=== PATIENT | female | born 1940 | race Caucasian/White ===

== ENCOUNTER 2023-01-01 23:17 | Inpatient (IN) | payer MEDICARE, OTHER ==
[~2023-01-01] VITALS: Ht 157.5 cm; Wt 90.7 kg
[2023-01-02] MEDS ORDERED: ACETAMINOPHEN ES 500 MG TABLET PO ONE (01:00)
[2023-01-02] MEDS ORDERED: TRAMADOL HCL 50 MG TABLET PO ONE (01:00)
[2023-01-02 01:06] LABS: ABG BASE EXCESS 2.7 mmol/L; ABG PCO2 48.6 mmHg (35.0-45.0); ABG PH 7.384 (7.350-7.450); ABG PO2 83.2 mmHg (75.0-100.0); COHb 0.3 % (0.5-1.5); MetHb 0.8 % (0.0-1.5); O2Hb 94.7 % (94.0-97.0); SITE, ABG Right Radial; VENT MODE, BG NASAL CANNULA
[2023-01-02 01:08] LABS: EOSINOPHILS % (AUTO) 4.9 % (0.0-6.0); HEMATOCRIT 32 % (33-45); HEMOGLOBIN 10.1 g/dL (11.5-14.8); LYMPHOCYTES # (AUTO) 1.2 K/uL (0.8-4.8); LYMPHOCYTES % (AUTO) 26.6 % (20.0-44.0); MEAN CORPUSCULAR HGB CONC 32 g/dl (31.0-36.0); MEAN CORPUSCULAR VOLUME 90 fL (82-100); MONOCYTES # (AUTO) 0.4 K/uL (0.1-1.30); MONOCYTES % (AUTO) 8.3 % (2.0-12.0); NEUTROPHILS # (AUTO) 2.8 K/uL (1.8-8.9); NEUTROPHILS % (AUTO) 59.2 % (43.0-81.0); PLATELET COUNT (AUTO) 363 K/uL (150-450); WHITE BLOOD COUNT (AUTO) 4.7 K/uL (4.3-11.0)
[2023-01-02] MEDS ORDERED: ENOXAPARIN SODIUM 100 MG/ML DISP.SYRIN SQ ONE (01:24)
[2023-01-02] MEDS ORDERED: TRAMADOL HCL 50 MG TABLET ONE ×2 (01:24→08:44)
[2023-01-02] MEDS ORDERED: ACETAMINOPHEN ES 500 MG TABLET ONE (01:24)
[2023-01-02 01:28] LABS: CALCIUM, SERUM 9.2 mg/dL (8.5-10.1); CARBON DIOXIDE 34 mmol/L (21-32); CHLORIDE 100 mmol/L (98-107); CREATININE 0.9 mg/dL (0.6-1.3); GLUCOSE 112 mg/dL (74-106); POTASSIUM 3.9 mmol/L (3.5-5.1); SODIUM SERUM 139 mmol/L (136-145); UREA NITROGEN, BLOOD 21 mg/dL (7-18)
[2023-01-02] MEDS ORDERED: ENOXAPARIN SODIUM 80 MG/0.8 ML DISP.SYRIN SQ ONE (01:30)
[2023-01-02 01:43] LABS: ALANINE AMINOTRANSFERASE 13 U/L (12-78); ALBUMIN 2.6 g/dL (3.4-5.0); ALKALINE PHOSPHATASE 63 U/L (46-116); ASPARTATE AMINOTRANSFERASE 11 U/L (15-37); BILIRUBIN,DIRECT 0.1 mg/dL (0.0-0.2); BILIRUBIN,TOTAL 0.2 mg/dL (0.2-1.0); TOTAL PROTEIN, SERUM 6.4 g/dL (6.4-8.2)
[2023-01-02] MEDS ORDERED: TRAMADOL HCL 50 MG TABLET PO PRN ×3 (04:30→16:00)
[2023-01-02] MEDS ORDERED: ALBUTEROL FS 2.5 MG/0.5 ML VIAL.NEB NEB PRN (04:30)
[2023-01-02] MEDS ORDERED: ONDA-97 PO (04:32)
[2023-01-02] MEDS ORDERED: ATOR10TA PO (04:32)
[2023-01-02] MEDS ORDERED: CARV6.252 PO (04:32)
[2023-01-02] MEDS ORDERED: NITR50CA51 PO (04:32)
[2023-01-02] MEDS ORDERED: HYDR12.55 PO (04:32)
[2023-01-02] MEDS ORDERED: PANT40TA49 PO (04:32)
[2023-01-02 05:01] LABS: BILIRUBIN,URINE NEGATIVE (NEGATIVE); COLOR,URINE YELLOW (YELLOW); LEUKOCYTE ESTERASE ,URINE NEGATIVE (NEGATIVE); NITRITE, URINE NEGATIVE (NEGATIVE); PH,URINE 6.5 (5.0-8.0); PROTEIN,URINE NEGATIVE (NEGATIVE); UGLUCOSE NEGATIVE (NEGATIVE); UROBILINOGEN,URINE 0.2 EU/dL (0.2)
[2023-01-02] MEDS ORDERED: ALBUTEROL FS 2.5 MG/0.5 ML VIAL.NEB ONE (07:46)
[2023-01-02] MEDS ORDERED: IPRATROPIUM NEB FS 0.5 MG/2.5 ML AMPUL.NEB ONE (07:46)
[2023-01-02] MEDS: ALBUTEROL FS 2.5 MG/0.5 ML VIAL.NEB HHN SCH ×3 (07:48→19:19)
[2023-01-02] MEDS: IPRATROPIUM NEB FS 0.5 MG/2.5 ML AMPUL.NEB NEB SCH ×3 (07:48→19:19)
[2023-01-02] MEDS ORDERED: ENOXAPARIN SODIUM 40 MG/0.4 ML DISP.SYRIN SQ ONE (08:28)
[2023-01-02] MEDS: ENOXAPARIN SODIUM 40 MG/0.4 ML DISP.SYRIN SQ SCH (08:30)
[2023-01-02] MEDS ORDERED: ACETAMINOPHEN 325 MG TABLET ONE (08:44)
[2023-01-02] MEDS: ACETAMINOPHEN 325 MG TABLET PO PRN ×3 (08:45→22:04)
[2023-01-02 09:00] VITALS: BP 135/84
[2023-01-02] MEDS ORDERED: ASPI-1420 PO (10:30)
[2023-01-02] MEDS ORDERED: ENOX40DI SQ (10:30)
[2023-01-02] MEDS ORDERED: LOPE2CAP PO (10:30)
[2023-01-02] MEDS ORDERED: METH-647 PO (10:30)
[2023-01-02] MEDS ORDERED: IBUP-1953 PO (10:30)
[2023-01-02] MEDS ORDERED: ACET-868 PO (10:30)
[2023-01-02] MEDS ORDERED: DOCU-141 PO (10:30)
[2023-01-02] MEDS ORDERED: FLUT16SP (10:30)
[2023-01-02] MEDS ORDERED: TRAM50TA2 PO (10:30)
[2023-01-02] MEDS ORDERED: SENN-261 PO (10:30)
[2023-01-02] MEDS ORDERED: POLY17PO4 PO (10:30)
[2023-01-02] MEDS ORDERED: NA P133E RC (10:30)
[2023-01-02] MEDS ORDERED: AMIN30LI2 PO (10:30)
[2023-01-02] MEDS ORDERED: NALO4SPR NS (10:30)
[2023-01-02] MEDS ORDERED: DICL1PAT7 TP (10:30)
[2023-01-02] MEDS ORDERED: BISA10SU11 RC (10:30)
[2023-01-02] MEDS ORDERED: LIDO30AD10 TP (10:30)
[2023-01-02 12:00] VITALS: BP 119/60
[2023-01-02] MEDS ORDERED: NA PHOS,M-B/NA PHOS,DI-BA 1 EA ENEMA RC PRN (14:00)
[2023-01-02] MEDS ORDERED: METHOCARBAMOL (500MG) 500 MG TABLET PO PRN (14:00)
[2023-01-02] MEDS ORDERED: BISACODYL SUPP (10 MG) 10 MG/SUPP.RECT SUPP.RECT RC PRN (14:00)
[2023-01-02] MEDS ORDERED: SENNOSIDES 8.6 MG TABLET PO PRN (14:00)
[2023-01-02] MEDS ORDERED: IBUPROFEN 400 MG TABLET PO PRN (14:00)
[2023-01-02] MEDS ORDERED: LOPERAMIDE HCL (2 MG CAP) 2 MG CAPSULE PO PRN (14:00)
[2023-01-02] MEDS ORDERED: POLYETHYLENE GLYCOL 3350 17 GM POWD.PACK PO PRN (14:00)
[2023-01-02] MEDS ORDERED: NALOXONE HCL 0.4 MG/ML AMPUL IV PRN (14:30)
[2023-01-02 16:00] VITALS: BP 137/88
[2023-01-02] MEDS: TRAMADOL HCL 50 MG TABLET PO PRN ×2 (16:04→22:04)
[2023-01-02] MEDS: DOCUSATE SODIUM 100 MG CAPSULE PO SCH (17:44)
[2023-01-02] MEDS: PANTOPRAZOLE 40 MG TABLET.DR PO SCH (17:45)
[2023-01-02] MEDS: PROSOURCE / PROSTAT (PYXIS) 30 ML UDC PO SCH (17:45)
[2023-01-02] MEDS: CARVEDILOL 6.25 MG TABLET PO SCH (17:45)
[2023-01-02] MEDS: ONDANSETRON HCL/PF 4 MG/2 ML VIAL IVP PRN (19:56)
[2023-01-02 20:00] VITALS: BP 136/54
[2023-01-02] MEDS ORDERED: DICLOFENAC EPOLAMINE TP SCH (21:00)
[2023-01-02] MEDS: ATORVASTATIN 10 MG TABLET PO SCH (21:51)
[2023-01-03] VITALS: BP 128/62
[2023-01-03] MEDS: ALBUTEROL FS 2.5 MG/0.5 ML VIAL.NEB HHN SCH ×4 (00:54→20:07)
[2023-01-03] MEDS: IPRATROPIUM NEB FS 0.5 MG/2.5 ML AMPUL.NEB NEB SCH ×4 (00:54→20:07)
[2023-01-03 04:00] VITALS: BP 119/58
[2023-01-03] MEDS: TRAMADOL HCL 50 MG TABLET PO PRN ×4 (04:06→23:12)
[2023-01-03] MEDS: ACETAMINOPHEN 325 MG TABLET PO PRN ×4 (04:07→23:12)
[2023-01-03 07:11] LABS: BASOPHILS % (AUTO) 1.2 % (0.0-2.0); EOSINOPHILS % (AUTO) 4.2 % (0.0-6.0); HEMATOCRIT 32 % (33-45); HEMOGLOBIN 10.2 g/dL (11.5-14.8); LYMPHOCYTES # (AUTO) 1.1 K/uL (0.8-4.8); LYMPHOCYTES % (AUTO) 29.9 % (20.0-44.0); MEAN CORPUSCULAR HGB CONC 32 g/dl (31.0-36.0); MEAN CORPUSCULAR VOLUME 91 fL (82-100); MONOCYTES # (AUTO) 0.4 K/uL (0.1-1.30); NEUTROPHILS # (AUTO) 2.1 K/uL (1.8-8.9); NEUTROPHILS % (AUTO) 54.7 % (43.0-81.0); PLATELET COUNT (AUTO) 341 K/uL (150-450); RED BLOOD CELL COUNT(AUTO) 3.49 MIL/uL (4.0-5.2); WHITE BLOOD COUNT (AUTO) 3.8 K/uL (4.3-11.0)
[2023-01-03 07:25] LABS: ALBUMIN 2.5 g/dL (3.4-5.0); BILIRUBIN,TOTAL 0.2 mg/dL (0.2-1.0); CALCIUM, SERUM 9.5 mg/dL (8.5-10.1); CREATININE 0.6 mg/dL (0.6-1.3); MAGNESIUM 1.7 mg/dL (1.8-2.4); PHOSPHORUS 4.1 mg/dL (2.5-4.9); POTASSIUM 4.3 mmol/L (3.5-5.1); TOTAL PROTEIN, SERUM 6.4 g/dL (6.4-8.2)
[2023-01-03 08:00] VITALS: BP 133/71
[2023-01-03] MEDS: LIDOCAINE 5% (PATCH) 1 EA PATCH TP SCH (08:59)
[2023-01-03] MEDS: ENOXAPARIN SODIUM 40 MG/0.4 ML DISP.SYRIN SQ SCH (09:00)
[2023-01-03] MEDS: FLUTICASONE PROPIONATE 16 GM BOTTLE NS SCH (09:01)
[2023-01-03] MEDS: ASPIRIN EC 81 MG TABLET.DR PO SCH (09:02)
[2023-01-03] MEDS: DOCUSATE SODIUM 100 MG CAPSULE PO SCH ×2 (09:03→16:09)
[2023-01-03] MEDS: CARVEDILOL 6.25 MG TABLET PO SCH ×2 (09:03→16:08)
[2023-01-03] MEDS: PANTOPRAZOLE 40 MG TABLET.DR PO SCH ×2 (09:03→16:03)
[2023-01-03] MEDS: HYDROCHLOROTHIAZIDE 25 MG TABLET PO SCH (09:03)
[2023-01-03] MEDS: FLUCONAZOLE IN NS,PREMIX 200 MG in PREMIX 1 EA IV SCH ×2 (09:04)
[2023-01-03] MEDS ORDERED: MAGNESIUM OXIDE 400 MG TABLET PO ONE (09:30)
[2023-01-03] MEDS: PROSOURCE / PROSTAT (PYXIS) 30 ML UDC PO SCH ×2 (10:09→16:09)
[2023-01-03 12:00] VITALS: BP 116/59
[2023-01-03 16:00] VITALS: BP 126/53
[2023-01-03] MEDS ORDERED: CT SWABBABLE VALVE TRANS SET 1 EA INFUS.SET MC ONE (16:17)
[2023-01-03] MEDS ORDERED: IOHEXOL-350 100 ML VIAL IV ONE (16:17)
[2023-01-03] MEDS ORDERED: IV NS 0.9% 250 ML IV ONE (16:17)
[2023-01-03 16:52] LABS: BILIRUBIN,URINE NEGATIVE (NEGATIVE); COLOR,URINE YELLOW (YELLOW); LEUKOCYTE ESTERASE ,URINE 2+ (NEGATIVE); NITRITE, URINE NEGATIVE (NEGATIVE); PH,URINE 6.5 (5.0-8.0); PROTEIN,URINE 2+ mg/dl (NEGATIVE); UGLUCOSE NEGATIVE (NEGATIVE); UROBILINOGEN,URINE 0.2 EU/dL (0.2)
[2023-01-03 17:46] LABS: WBC,URINE 21-50 /HPF (0-3)
[2023-01-03 17:47] LABS: BACTERIA,URINE Many /HPF (None Seen); SQUAMOUS EPITHELIAL CELL,UR Few /HPF (None Seen)
[2023-01-03 20:00] VITALS: BP 111/57
[2023-01-03] MEDS: ATORVASTATIN 10 MG TABLET PO SCH (21:32)
[2023-01-04] VITALS: BP 115/46
[2023-01-04] MEDS: ALBUTEROL FS 2.5 MG/0.5 ML VIAL.NEB HHN SCH ×4 (01:58→20:18)
[2023-01-04] MEDS: IPRATROPIUM NEB FS 0.5 MG/2.5 ML AMPUL.NEB NEB SCH ×4 (01:58→20:18)
[2023-01-04 04:00] VITALS: BP 124/52
[2023-01-04] MEDS: TRAMADOL HCL 50 MG TABLET PO PRN ×3 (05:34→18:11)
[2023-01-04] MEDS: ACETAMINOPHEN 325 MG TABLET PO PRN ×3 (05:34→18:11)
[2023-01-04 07:14] LABS: BASOPHILS % (AUTO) 1.3 % (0.0-2.0); EOSINOPHILS % (AUTO) 3.3 % (0.0-6.0); HEMATOCRIT 30 % (33-45); HEMOGLOBIN 9.3 g/dL (11.5-14.8); LYMPHOCYTES # (AUTO) 1.3 K/uL (0.8-4.8); LYMPHOCYTES % (AUTO) 33.9 % (20.0-44.0); MEAN CORPUSCULAR HGB CONC 32 g/dl (31.0-36.0); MEAN CORPUSCULAR VOLUME 92 fL (82-100); MONOCYTES # (AUTO) 0.3 K/uL (0.1-1.30); MONOCYTES % (AUTO) 9.2 % (2.0-12.0); NEUTROPHILS % (AUTO) 52.3 % (43.0-81.0); PLATELET COUNT (AUTO) 311 K/uL (150-450); RED BLOOD CELL COUNT(AUTO) 3.23 MIL/uL (4.0-5.2); WHITE BLOOD COUNT (AUTO) 3.8 K/uL (4.3-11.0)
[2023-01-04] MEDS: PANTOPRAZOLE 40 MG TABLET.DR PO SCH ×2 (07:23→16:31)
[2023-01-04 07:34] LABS: CALCIUM, SERUM 9.6 mg/dL (8.5-10.1); CARBON DIOXIDE 32 mmol/L (21-32); CHLORIDE 102 mmol/L (98-107); CREATININE 0.7 mg/dL (0.6-1.3); GLUCOSE 87 mg/dL (74-106); MAGNESIUM 1.8 mg/dL (1.8-2.4); PHOSPHORUS 4.2 mg/dL (2.5-4.9); POTASSIUM 4.3 mmol/L (3.5-5.1); SODIUM SERUM 140 mmol/L (136-145); UREA NITROGEN, BLOOD 20 mg/dL (7-18)
[2023-01-04 08:00] VITALS: BP 133/55
[2023-01-04] MEDS: DOCUSATE SODIUM 100 MG CAPSULE PO SCH ×2 (08:23→16:31)
[2023-01-04] MEDS: CARVEDILOL 6.25 MG TABLET PO SCH ×2 (08:23→16:32)
[2023-01-04] MEDS: ASPIRIN EC 81 MG TABLET.DR PO SCH (08:23)
[2023-01-04] MEDS: HYDROCHLOROTHIAZIDE 25 MG TABLET PO SCH (08:23)
[2023-01-04] MEDS: FLUCONAZOLE IN NS,PREMIX 200 MG in PREMIX 1 EA IV SCH ×2 (08:24)
[2023-01-04] MEDS: LIDOCAINE 5% (PATCH) 1 EA PATCH TP SCH (08:24)
[2023-01-04] MEDS: PROSOURCE / PROSTAT (PYXIS) 30 ML UDC PO SCH ×2 (08:24→16:32)
[2023-01-04] MEDS: FLUTICASONE PROPIONATE 16 GM BOTTLE NS SCH (08:25)
[2023-01-04] MEDS: ENOXAPARIN SODIUM 40 MG/0.4 ML DISP.SYRIN SQ SCH (08:47)
[2023-01-04 12:00] VITALS: BP 148/73
[2023-01-04] MEDS ORDERED: MEROPENEM 500 MG in IV NS 0.9% 50 ML IV SCH (13:00)
[2023-01-04] MEDS: MEROPENEM 1 G in IV NS 0.9% 100 ML IV SCH ×2 (13:04→21:05)
[2023-01-04 16:00] VITALS: BP 120/60
[2023-01-04] MEDS: ATORVASTATIN 10 MG TABLET PO SCH (21:36)
[2023-01-04 22:46] VITALS: BP 114/57
[2023-01-05] MEDS: ACETAMINOPHEN 325 MG TABLET PO PRN ×4 (00:17→19:45)
[2023-01-05] MEDS: TRAMADOL HCL 50 MG TABLET PO PRN ×4 (00:17→19:46)
[2023-01-05 01:01] VITALS: BP 122/63
[2023-01-05] MEDS: IPRATROPIUM NEB FS 0.5 MG/2.5 ML AMPUL.NEB NEB SCH ×4 (01:52→20:11)
[2023-01-05] MEDS: ALBUTEROL FS 2.5 MG/0.5 ML VIAL.NEB HHN SCH ×4 (01:52→20:11)
[2023-01-05] MEDS: MEROPENEM 1 G in IV NS 0.9% 100 ML IV SCH ×3 (04:18→20:51)
[2023-01-05 04:37] VITALS: BP 122/54
[2023-01-05 06:57] LABS: BASOPHILS % (AUTO) 1.2 % (0.0-2.0); EOSINOPHILS % (AUTO) 2.4 % (0.0-6.0); HEMATOCRIT 29 % (33-45); HEMOGLOBIN 9.3 g/dL (11.5-14.8); LYMPHOCYTES # (AUTO) 1.1 K/uL (0.8-4.8); LYMPHOCYTES % (AUTO) 28.6 % (20.0-44.0); MEAN CORPUSCULAR HGB CONC 32 g/dl (31.0-36.0); MEAN CORPUSCULAR VOLUME 90 fL (82-100); MONOCYTES # (AUTO) 0.4 K/uL (0.1-1.30); MONOCYTES % (AUTO) 9.2 % (2.0-12.0); NEUTROPHILS # (AUTO) 2.2 K/uL (1.8-8.9); NEUTROPHILS % (AUTO) 58.6 % (43.0-81.0); PLATELET COUNT (AUTO) 288 K/uL (150-450); RED BLOOD CELL COUNT(AUTO) 3.21 MIL/uL (4.0-5.2); WHITE BLOOD COUNT (AUTO) 3.8 K/uL (4.3-11.0)
[2023-01-05 07:09] LABS: CALCIUM, SERUM 9.1 mg/dL (8.5-10.1); CREATININE 0.7 mg/dL (0.6-1.3); MAGNESIUM 1.5 mg/dL (1.8-2.4)
[2023-01-05] MEDS: PANTOPRAZOLE 40 MG TABLET.DR PO SCH ×2 (07:24→16:50)
[2023-01-05 08:00] VITALS: BP 141/63
[2023-01-05] MEDS: ASPIRIN EC 81 MG TABLET.DR PO SCH (08:28)
[2023-01-05] MEDS: DOCUSATE SODIUM 100 MG CAPSULE PO SCH ×2 (08:29→16:50)
[2023-01-05] MEDS: FLUCONAZOLE (100 MG) 100 MG TABLET PO SCH (08:29)
[2023-01-05] MEDS: HYDROCHLOROTHIAZIDE 25 MG TABLET PO SCH (08:29)
[2023-01-05] MEDS: CARVEDILOL 6.25 MG TABLET PO SCH ×2 (08:29→16:51)
[2023-01-05] MEDS: LIDOCAINE 5% (PATCH) 1 EA PATCH TP SCH (08:30)
[2023-01-05] MEDS: ENOXAPARIN SODIUM 40 MG/0.4 ML DISP.SYRIN SQ SCH (08:33)
[2023-01-05] MEDS: FLUTICASONE PROPIONATE 16 GM BOTTLE NS SCH (08:33)
[2023-01-05] MEDS: PROSOURCE / PROSTAT (PYXIS) 30 ML UDC PO SCH ×2 (08:35→16:51)
[2023-01-05] MEDS: Magnesium 1GM/D5W 100ML PREMIX 100 ML IV SCH ×2 (09:50→11:08)
[2023-01-05 12:00] VITALS: BP 139/62
[2023-01-05] MEDS: VANCOMYCIN 1.25 GM in IV D5W 250 ML IV SCH (14:17)
[2023-01-05 16:00] VITALS: BP 133/62
[2023-01-05 20:00] VITALS: BP 118/66
[2023-01-05] MEDS: ATORVASTATIN 10 MG TABLET PO SCH (21:01)
[2023-01-05] MEDS: ONDANSETRON HCL/PF 4 MG/2 ML VIAL IVP PRN (23:03)
[2023-01-06] VITALS: BP 129/63
[2023-01-06] MEDS: IPRATROPIUM NEB FS 0.5 MG/2.5 ML AMPUL.NEB NEB SCH ×4 (01:42→20:41)
[2023-01-06] MEDS: ALBUTEROL FS 2.5 MG/0.5 ML VIAL.NEB HHN SCH ×4 (01:42→20:41)
[2023-01-06] MEDS: ACETAMINOPHEN 325 MG TABLET PO PRN ×4 (01:49→21:04)
[2023-01-06] MEDS: TRAMADOL HCL 50 MG TABLET PO PRN ×4 (01:50→21:05)
[2023-01-06 04:00] VITALS: BP 132/57
[2023-01-06] MEDS: MEROPENEM 1 G in IV NS 0.9% 100 ML IV SCH ×2 (05:12→13:07)
[2023-01-06 06:52] LABS: BASOPHILS # (AUTO) 0.1 K/uL (0.0-0.2); BASOPHILS % (AUTO) 1.3 % (0.0-2.0); HEMATOCRIT 29 % (33-45); HEMOGLOBIN 9.3 g/dL (11.5-14.8); LYMPHOCYTES # (AUTO) 1.1 K/uL (0.8-4.8); LYMPHOCYTES % (AUTO) 28.2 % (20.0-44.0); MEAN CORPUSCULAR HGB CONC 32 g/dl (31.0-36.0); MEAN CORPUSCULAR VOLUME 91 fL (82-100); MONOCYTES # (AUTO) 0.4 K/uL (0.1-1.30); MONOCYTES % (AUTO) 9.5 % (2.0-12.0); NEUTROPHILS # (AUTO) 2.4 K/uL (1.8-8.9); PLATELET COUNT (AUTO) 274 K/uL (150-450); RED BLOOD CELL COUNT(AUTO) 3.22 MIL/uL (4.0-5.2); WHITE BLOOD COUNT (AUTO) 4.1 K/uL (4.3-11.0)
[2023-01-06 07:07] LABS: CALCIUM, SERUM 9.8 mg/dL (8.5-10.1); CARBON DIOXIDE 34 mmol/L (21-32); CHLORIDE 100 mmol/L (98-107); CREATININE 0.6 mg/dL (0.6-1.3); GLUCOSE 94 mg/dL (74-106); MAGNESIUM 1.9 mg/dL (1.8-2.4); PHOSPHORUS 3.6 mg/dL (2.5-4.9); POTASSIUM 4.2 mmol/L (3.5-5.1); SODIUM SERUM 138 mmol/L (136-145); UREA NITROGEN, BLOOD 16 mg/dL (7-18)
[2023-01-06 08:00] VITALS: BP 130/77
[2023-01-06] MEDS: LIDOCAINE 5% (PATCH) 1 EA PATCH TP SCH ×2 (08:11→08:33)
[2023-01-06] MEDS: ENOXAPARIN SODIUM 40 MG/0.4 ML DISP.SYRIN SQ SCH (08:11)
[2023-01-06] MEDS: ASPIRIN EC 81 MG TABLET.DR PO SCH (08:12)
[2023-01-06] MEDS: CARVEDILOL 6.25 MG TABLET PO SCH ×2 (08:12→17:21)
[2023-01-06] MEDS: HYDROCHLOROTHIAZIDE 25 MG TABLET PO SCH (08:12)
[2023-01-06] MEDS: FLUTICASONE PROPIONATE 16 GM BOTTLE NS SCH (08:13)
[2023-01-06] MEDS: FLUCONAZOLE (100 MG) 100 MG TABLET PO SCH (08:13)
[2023-01-06] MEDS: PANTOPRAZOLE 40 MG TABLET.DR PO SCH ×2 (08:13→17:21)
[2023-01-06] MEDS: VANCOMYCIN 1.25 GM in IV D5W 250 ML IV SCH (08:14)
[2023-01-06] MEDS: PROSOURCE / PROSTAT (PYXIS) 30 ML UDC PO SCH ×2 (08:15→17:19)
[2023-01-06] MEDS: DOCUSATE SODIUM 100 MG CAPSULE PO SCH ×2 (08:15→17:21)
[2023-01-06 12:00] VITALS: BP 113/50
[2023-01-06 16:00] VITALS: BP 109/48
[2023-01-06] MEDS ORDERED: CIPROFLOXACIN HCL 250 MG TABLET PO SCH (21:00)
[2023-01-06] MEDS: CIPROFLOXACIN HCL 500 MG TABLET PO SCH (21:04)
[2023-01-06] MEDS: ATORVASTATIN 10 MG TABLET PO SCH (21:04)
[2023-01-06 23:38] VITALS: BP 110/54
[2023-01-07 00:58] VITALS: BP 116/55
[2023-01-07] MEDS: ALBUTEROL FS 2.5 MG/0.5 ML VIAL.NEB HHN SCH ×3 (01:00→13:30)
[2023-01-07] MEDS: IPRATROPIUM NEB FS 0.5 MG/2.5 ML AMPUL.NEB NEB SCH ×3 (01:00→13:30)
[2023-01-07] MEDS: ACETAMINOPHEN 325 MG TABLET PO PRN ×2 (05:03→11:50)
[2023-01-07] MEDS: TRAMADOL HCL 50 MG TABLET PO PRN ×2 (05:04→11:50)
[2023-01-07 06:29] VITALS: BP 122/53
[2023-01-07 07:22] LABS: BASOPHILS # (AUTO) 0.1 K/uL (0.0-0.2); BASOPHILS % (AUTO) 2.2 % (0.0-2.0); EOSINOPHILS % (AUTO) 2.4 % (0.0-6.0); HEMATOCRIT 29 % (33-45); HEMOGLOBIN 9.3 g/dL (11.5-14.8); LYMPHOCYTES # (AUTO) 1.1 K/uL (0.8-4.8); LYMPHOCYTES % (AUTO) 28.7 % (20.0-44.0); MEAN CORPUSCULAR HGB CONC 33 g/dl (31.0-36.0); MEAN CORPUSCULAR VOLUME 90 fL (82-100); MONOCYTES # (AUTO) 0.4 K/uL (0.1-1.30); MONOCYTES % (AUTO) 10.6 % (2.0-12.0); NEUTROPHILS # (AUTO) 2.1 K/uL (1.8-8.9); NEUTROPHILS % (AUTO) 56.1 % (43.0-81.0); PLATELET COUNT (AUTO) 255 K/uL (150-450); RED BLOOD CELL COUNT(AUTO) 3.19 MIL/uL (4.0-5.2); WHITE BLOOD COUNT (AUTO) 3.8 K/uL (4.3-11.0)
[2023-01-07 07:50] LABS: CALCIUM, SERUM 8.8 mg/dL (8.5-10.1); CREATININE 0.6 mg/dL (0.6-1.3); MAGNESIUM 1.7 mg/dL (1.8-2.4); PHOSPHORUS 3.5 mg/dL (2.5-4.9); POTASSIUM 4.2 mmol/L (3.5-5.1)
[2023-01-07 08:00] VITALS: BP 107/60
[2023-01-07] MEDS: LIDOCAINE 5% (PATCH) 1 EA PATCH TP SCH ×2 (08:25→08:57)
[2023-01-07] MEDS: PANTOPRAZOLE 40 MG TABLET.DR PO SCH (08:26)
[2023-01-07] MEDS: CARVEDILOL 6.25 MG TABLET PO SCH (08:26)
[2023-01-07] MEDS: HYDROCHLOROTHIAZIDE 25 MG TABLET PO SCH (08:26)
[2023-01-07] MEDS: CIPROFLOXACIN HCL 500 MG TABLET PO SCH (08:26)
[2023-01-07] MEDS: DOCUSATE SODIUM 100 MG CAPSULE PO SCH (08:27)
[2023-01-07] MEDS: ASPIRIN EC 81 MG TABLET.DR PO SCH (08:27)
[2023-01-07] MEDS: FLUCONAZOLE (100 MG) 100 MG TABLET PO SCH (08:27)
[2023-01-07] MEDS: ENOXAPARIN SODIUM 40 MG/0.4 ML DISP.SYRIN SQ SCH (08:30)
[2023-01-07] MEDS: ONDANSETRON HCL/PF 4 MG/2 ML VIAL IVP PRN ×2 (08:39→14:42)
[2023-01-07] MEDS: FLUTICASONE PROPIONATE 16 GM BOTTLE NS SCH (08:56)
[2023-01-07] MEDS: PROSOURCE / PROSTAT (PYXIS) 30 ML UDC PO SCH (08:56)
[2023-01-07] MEDS: Magnesium 1GM/D5W 100ML PREMIX 100 ML IV SCH ×2 (10:38→11:50)
[2023-01-07 12:00] VITALS: BP 140/63
[2023-01-07] MEDS ORDERED: CIPR-263 PO (12:13)
[2023-01-07] MEDS ORDERED: FLUC200T8 PO (12:13)
== END 2023-01-07 15:20 | DRG 867 ==
LOC: ER 23:35 → TELE1 01-02 08:30 → UNDODISIN 01-07 15:20
PROVIDERS: ADMIT Nurse Practitioner Acute Care; ATTEND Nurse Practitioner Acute Care
PROC: 5A09557 Assistance with Respiratory Ventilation, Greater than 96 Consecutive Hours, Continuous Positive Airway Pressure (ICD-10-PCS; principal; 2023-01-02)
DX: B49 Unspecified mycosis (principal); J96.21 Acute and chronic respiratory failure with hypoxia; N17.0 Acute kidney failure with tubular necrosis; J96.22 Acute and chronic respiratory failure with hypercapnia; E66.2 Morbid (severe) obesity with alveolar hypoventilation; N39.0 Urinary tract infection, site not specified; R78.81 Bacteremia; I42.8 Other cardiomyopathies; J98.11 Atelectasis; E87.70 Fluid overload, unspecified; K21.9 Gastro-esophageal reflux disease without esophagitis; B95.61 Methicillin susceptible Staphylococcus aureus infection as the cause of diseases classified elsewhere; Z68.36 Body mass index [BMI] 36.0-36.9, adult; Z20.822 Contact with and (suspected) exposure to COVID-19; G89.4 Chronic pain syndrome; I10 Essential (primary) hypertension; J44.9 Chronic obstructive pulmonary disease, unspecified; Z88.0 Allergy status to penicillin; Z87.440 Personal history of urinary (tract) infections; Z86.74 Personal history of sudden cardiac arrest; M51.36 Other intervertebral disc degeneration, lumbar region; M48.061 Spinal stenosis, lumbar region without neurogenic claudication; M17.0 Bilateral primary osteoarthritis of knee; H81.09 Meniere's disease, unspecified ear; Z88.8 Allergy status to other drugs, medicaments and biological substances; I34.0 Nonrheumatic mitral (valve) insufficiency; I27.20 Pulmonary hypertension, unspecified; I70.0 Atherosclerosis of aorta; M54.40 Lumbago with sciatica, unspecified side; H91.90 Unspecified hearing loss, unspecified ear; F41.9 Anxiety disorder, unspecified; D63.8 Anemia in other chronic diseases classified elsewhere; M79.7 Fibromyalgia; Z98.890 Other specified postprocedural states; Z74.01 Bed confinement status; Z98.891 History of uterine scar from previous surgery; Z79.01 Long term (current) use of anticoagulants; Z79.899 Other long term (current) drug therapy; Z79.51 Long term (current) use of inhaled steroids; Z79.82 Long term (current) use of aspirin
CPT/HCPCS: 36415; 36600; 71045-TC; 80048-TC; 80053-TC; 80076-TC; 81001; 82803-TC; 83735-TC; 83880; 84100-TC; 84484-TC; 85025-TC; 85378-TC; 87040-TC; 87081-TC; 87086-TC; 93307-TC; 93970-TC; 94660; 94799-TC; 97110-TC; 97530-TC; A4216; A4223; C9803; G0378; J1450; J1650; J2185; J2405; J3370; J3475; J7030; J7040; J7042; J7050; J7060; Q9967